=== PATIENT | male | born 1965 | race Caucasian/White ===

== ENCOUNTER 2016-11-08 02:23 | Emergency (ER) | payer OTHER ==
[~2016-11-08] VITALS: Ht 167.6 cm; Wt 115.7 kg
[2016-11-08 07:20] VITALS: BP 141/92
== END 2016-11-08 07:20 | disposition home or self-care (01) ==
LOC: ED 02:23
DX: L50.9 Urticaria, unspecified (principal)
CPT/HCPCS: J1200; J2930